=== PATIENT | female | born 1990 | race Caucasian/White ===

== ENCOUNTER 2021-05-01 21:18 | Emergency (ER) | payer OTHER ==
[~2021-05-01] VITALS: Ht 170.2 cm; Wt 72.7 kg
[2021-05-01] MEDS ORDERED: IBUPROFEN 400 MG TABLET PO ONE ×2 (22:45→23:15)
[2021-05-01 23:14] LABS: AMPHET/METH SCREEN,URINE NEGATIVE (NEGATIVE); BARBITURATE SCREEN, URINE NEGATIVE (NEGATIVE); BENZODIAZEPINES SCREEN,URINE NEGATIVE (NEGATIVE); CANNABINOID SCREEN,URINE NEGATIVE (NEGATIVE); COCAINE SCREEN,URINE NEGATIVE (NEGATIVE); METHADONE SCREEN, URINE NEGATIVE (NEGATIVE); OPIATE SCREEN,URINE NEGATIVE (NEGATIVE)
[2021-05-01 23:18] LABS: PHENCYCLIDINE SCREEN,URINE NEGATIVE (NEGATIVE)
[2021-05-01] MEDS ORDERED: AMOXICILLIN TRIHYDRATE 250 MG CAPSULE PO ONE (23:45)
[2021-05-02 10:19] VITALS: BP 111/65
== END 2021-05-02 11:15 | disposition home or self-care (01) ==
LOC: EMS 21:18
DX: K02.9 Dental caries, unspecified (principal); F17.290 Nicotine dependence, other tobacco product, uncomplicated
CPT/HCPCS: 84703; 99283; 99285

== ENCOUNTER 2023-11-05 00:39 | Emergency (ER) | payer OTHER ==
[~2023-11-05] VITALS: Ht 157.5 cm; Wt 63.6 kg
[2023-11-05 00:48] VITALS: TEMP 98.5
[2023-11-05 02:26] VITALS: BP 126/74; PULSE 88; RESP 18
== END 2023-11-05 02:27 | disposition home or self-care (01) ==
LOC: EMS 00:40
DX: F69 Unspecified disorder of adult personality and behavior (principal)
CPT/HCPCS: 99285; Z7502

== ENCOUNTER 2023-11-08 09:42 | Inpatient (IN) | payer MEDICAID, OTHER ==
[~2023-11-08] VITALS: Ht 165.1 cm; Wt 80.8 kg
[2023-11-08] MEDS ORDERED: LORazepam 2 MG/ML VIAL ONE (10:30)
[2023-11-08] MEDS ORDERED: DiphenhydrAMINE HCL 50 MG/ML VIAL ONE (10:30)
[2023-11-08] MEDS ORDERED: HALOPERIDOL LACTATE 5 MG/ML VIAL ONE (10:30)
[2023-11-08] MEDS: DiphenhydrAMINE HCL 50 MG/ML VIAL IM ONE (10:48)
[2023-11-08] MEDS: HALOPERIDOL LACTATE 5 MG/ML VIAL IM ONE (10:51)
[2023-11-08] MEDS: LORazepam 2 MG/ML VIAL IM ONE (10:52)
[2023-11-08] MEDS ORDERED: HALOPERIDOL 5 MG TABLET PO PRN (11:30)
[2023-11-08] MEDS ORDERED: LORazepam 2 MG TABLET PO PRN (11:30)
[2023-11-08] MEDS ORDERED: ZOLPIDEM TARTRATE 10 MG TABLET PO PRN ×2 (11:30→15:15)
[2023-11-08 11:41] LABS: COVID AG,FIA SOURCE NASAL SWAB
[2023-11-08 11:45] LABS: BASOPHILS % (AUTO) 0.8 % (0.0-2.0); EOSINOPHILS % (AUTO) 2.7 % (1.0-6.0); HEMATOCRIT 35.4 % (36-46); HEMOGLOBIN 11.9 g/dL (12.0-16.0); LYMPHOCYTES # (AUTO) 1.3 K/uL (1.0-4.8); LYMPHOCYTES % (AUTO) 18.2 % (22.0-44.0); MEAN CORPUSCULAR HEMOGLOBIN 30.4 pg (26.0-34.0); MEAN CORPUSCULAR HGB CONC 33.6 G/dL (31.0-37.0); MEAN CORPUSCULAR VOLUME 91 fL (80-100); MONOCYTES # (AUTO) 0.6 K/uL (0.1-1.0); MONOCYTES % (AUTO) 8.1 % (2.0-9.0); NEUTROPHILS # (AUTO) 4.9 K/uL (1.8-7.7); NEUTROPHILS % (AUTO) 70.2 % (40.0-70.0); PLATELET COUNT (AUTO) 198 K/uL (150-450); RED BLOOD CELL COUNT(AUTO) 3.91 MIL/uL (4.00-5.20); RED CELL DISTRIBUTION WIDTH 12.7 % (11.5-14.5); WHITE BLOOD COUNT (AUTO) 6.9 K/uL (4.5-11.0)
[2023-11-08 11:59] LABS: ANION GAP 11 mmol/L (8-16); CALCIUM, TOTAL 8.7 mg/dL (8.8-10.5); CARBON DIOXIDE 26 mmol/L (22-29); CHLORIDE 105 mmol/L (98-107); CREATININE 0.86 mg/dL (0.60-1.30); GLOMERULAR FILTR. RATE CALC > 60 mL/min (>60); GLUCOSE,RANDOM 93 mg/dL (70-110); POTASSIUM 3.3 mmol/L (3.5-5.1); SODIUM SERUM 142 mmol/L (136-145); UREA NITROGEN, BLOOD 18 mg/dL (7-18)
[2023-11-08 12:04] LABS: SARS-COV2 (COVID) ANTIGEN,FIA Negative (Negative)
[2023-11-08 12:08] LABS: ALANINE AMINOTRANSFERASE 48 U/L (12-78); ALBUMIN 3.1 g/dL (3.4-5.0); ALKALINE PHOSPHATASE 52 U/L (46-116); ASPARTATE AMINOTRANSFERASE 47 U/L (15-37); BILIRUBIN,TOTAL 0.3 mg/dL (0.1-1.0); HCG,QUANTITATIVE < 1 mIU/mL (0-6); TOTAL PROTEIN, SERUM 6.3 g/dL (6.4-8.2)
[2023-11-08 12:13] LABS: ALCOHOL, BLOOD (SERUM) < 3 mg/dL (0-10)
[2023-11-08 22:29] VITALS: BP 117/73; PULSE 63; RESP 16; TEMP 98.6; O2SAT 98
[2023-11-08] MEDS ORDERED: MAG HYDROX/ALUMINUM HYD/SIMETH ES 30 ML SUSPENSION UDCUP PO PRN (22:30)
[2023-11-08] MEDS ORDERED: BENZOCAINE/MENTHOL LOZENGE PO PRN (22:30)
[2023-11-08] MEDS ORDERED: LOPERAMIDE HCL 2 MG CAPSULE PO PRN (22:30)
[2023-11-08] MEDS ORDERED: ACETAMINOPHEN 325 MG TABLET PO PRN (22:30)
[2023-11-08] MEDS ORDERED: CloNIDine HCL 0.1 MG TABLET PO PRN (22:30)
[2023-11-08] MEDS ORDERED: PETROLATUM,WHITE 28 GM JELLY TP PRN (22:30)
[2023-11-08] MEDS ORDERED: BACITRACIN 28 GM OINTMENT TP PRN (22:30)
[2023-11-08] MEDS ORDERED: DOCUSATE SODIUM 100 MG CAPSULE PO PRN (22:30)
[2023-11-08] MEDS ORDERED: OMEPRAZOLE 20 MG CAPSULE PO PRN (22:30)
[2023-11-08] MEDS ORDERED: MAGNESIUM HYDROXIDE SUSPENSION 30 ML UDCUP PO PRN (22:30)
[2023-11-08] MEDS ORDERED: IBUPROFEN 600 MG TABLET PO PRN (22:30)
[2023-11-08] MEDS ORDERED: ONDANSETRON HCL 4 MG TABLET PO PRN (22:30)
[2023-11-08] MEDS ORDERED: ALBUTEROL SULFATE HFA 90 MCG/PUFF 8 GM INHALER IH PRN (22:30)
[2023-11-08] MEDS ORDERED: INFLUENZA VIRUS VACCINE QVS 2023-24 (6MO+)/PF 60 MCG/0.5 ML SYRINGE IM. ONE (22:45)
[2023-11-09 08:38] VITALS: BP 126/78; PULSE 83; RESP 18; TEMP 98; O2SAT 99
[2023-11-09] MEDS: HALOPERIDOL 5 MG TABLET PO PRN (12:34)
[2023-11-09] MEDS: POTASSIUM CHLORIDE 20 MEQ ER TABLET PO ONE (12:43)
[2023-11-09 20:43] VITALS: BP 103/67; PULSE 65; RESP 17; TEMP 97.7; O2SAT 100
[2023-11-10 08:21] VITALS: BP 124/82; PULSE 89; RESP 18; TEMP 98; O2SAT 99
[2023-11-10 20:07] VITALS: BP 103/60; PULSE 61; RESP 17; TEMP 97.6
[2023-11-10] MEDS: RisperiDONE 1 MG TABLET PO SCH (20:26)
[2023-11-11] MEDS: LORazepam 2 MG TABLET PO PRN (08:18)
[2023-11-11 23:46] VITALS: BP 98/64; PULSE 68; RESP 18; TEMP 97.6
[2023-11-12 08:24] VITALS: BP 116/79; PULSE 82; RESP 16; TEMP 97.9; O2SAT 96
[2023-11-12 20:45] VITALS: BP 111/53; PULSE 76; RESP 15; TEMP 97.8; O2SAT 95
[2023-11-13 08:28] VITALS: BP 109/72; PULSE 88; RESP 16; TEMP 97.6; O2SAT 99
[2023-11-14 00:04] VITALS: RESP 18; TEMP 98.1
[2023-11-14 08:19] VITALS: BP 116/73; PULSE 76; RESP 16; TEMP 98; O2SAT 98
[2023-11-14] MEDS ORDERED: RISP1TAB48 PO (10:46)
== END 2023-11-14 14:20 | disposition home or self-care (01) | DRG 750 ==
LOC: EMS 09:42 → B3A 14:41
PROVIDERS: ADMIT Psychiatry & Neurology Psychiatry; ATTEND Psychiatry & Neurology Psychiatry
PROC: GZHZZZZ Group Psychotherapy (ICD-10-PCS; principal; 2023-11-09)
PROC: GZ56ZZZ Individual Psychotherapy, Supportive (ICD-10-PCS; 2023-11-09)
DX: F20.9 Schizophrenia, unspecified (principal); E87.6 Hypokalemia; F41.9 Anxiety disorder, unspecified; G47.00 Insomnia, unspecified; Z20.822 Contact with and (suspected) exposure to COVID-19; K59.00 Constipation, unspecified; K21.9 Gastro-esophageal reflux disease without esophagitis; Z79.899 Other long term (current) drug therapy; Z28.89 Immunization not carried out for other reason
CPT/HCPCS: 80053; 84132; 84702; 85025; 99285; G0480; J1200; J1630; J2060